=== PATIENT | male | born 1955 | race Caucasian/White ===

== ENCOUNTER → 2019-06-22 | Outpatient (CLI) | payer OTHER ==
[~2019-06-22] VITALS: Ht 167.6 cm; Wt 93.0 kg
[~2019-06-22] MED LIST: ALLOPURINOL 10100 M3 PO; ASA81BEC PO; FISH OIL 1,0001 EAC9 PO; FLEXERIL PO; LIPITOR40 MG PO; NORVASC5 MG PO; PROTONIX 20 MG20 M1 PO; TOPROL XL25 MG PO; TRAMADOL 50 MG50 MG PO; XANAX 0.5 MG0.5 M1 PO; ZANTAC 150MG T150 M1 PO
[2019-06-22 07:06] VITALS: BP 117/84
[2019-06-22 07:12] LABS: HEMATOCRIT 44.5 % (42.0-52.0); HEMOGLOBIN 14.9 gm/dL (14.0-18.0); MCH 31.4 pg (26.0-34.0); MCHC 33.5 g/dL (28.0-37.0); MCV 93.7 fL (80.0-100.0); RBC 4.75 mil/uL (4.50-6.00); RDW 13.4 % (10.5-14.5); WBC 6.1 thou/uL (4.0-11.0)
[2019-06-22 07:21] LABS: CREATININE 1.1 mg/dL (0.7-1.3); POTASSIUM 4.1 mmol/L (3.5-5.1)
--- NOTE | 2019-06-22 17:16 | EKG ---
[place] [address] [address] [employer] [facility] [place] [address] ELECTROCARDIOGRAM REPORT Name: SONYA BOYCE Room #: REG [facility]#: [id number] Admission: 06/22/19 Attend Phys: Christian Bazzi MD, Discharge: Date of : 57 Report #: [id number] THIS REPORT FOR: //name// [facility] Test Date: 2019-06-22 Test Time: 07:11:16 Pat Name: SONYA BOYCE Department: Room: Gender: M Freelance Interpreter/Translator: Duong MARTIN : 1955 Requested By: Christian Bazzi Order Number: [id number] MD: Tan Briones Measurements Intervals [place] Rate: 59 P: 0 WI: 224 QRS: -58 QRSD: 113 T: 4 QT: 417 QTc: 414 Interpretive Statements Sinus rhythm Prolonged WI interval Left anterior fascicular block Abnormal R-wave progression, early transition Compared to ECG 05/18/2001 11:13:20 First degree AV block now present Early R-wave progression now present Electronically Signed On 06-22-2019 17:16:18 CAMPUS SECURITY OFFICER by Tan Briones [email or web address] <ELECTRONICALLY SIGNED> By: Tan Briones MD, [facility] 06/22/19 1716 0 Tan Briones MD, [facility] /EPI
--- NOTE | 2019-06-23 17:59 | CATHLAB ---
[facility] [address] [place] [address] INVASIVE PROCEDURE REPORT Name: SONYA BOYCE [id number] Admission: 06/22/19 Attend Phys: Christian Bazzi, Discharge: Date of : 57 Report #: [id number] THIS REPORT FOR: //name// APPROVED REPORT Study performed: 06/22/2019 08:02:06 Patient Details Patient Status: Out-Patient Room #: The patient is a 64 year-old male Event Personnel Christian Bazzi Faucets Assembler, Beronica Baldwin Monitor, Bere Meléndez RT(R)() Gómezub, Tarun Strickland RTR Scrub, Irais Wilson RN RN, Nelson Ferris RTR Monitor Procedures Performed Art Access - R femoral artery* 77214 Initial Mod Sed Same Phys/QHP Gr5y 405728 Left Heart Cath w/or w/o Coronaries [id number] [facility] Aortogram Abdominal Peripheral Angio 551160 Hemostasis w/ Mynx Indication Chest pain Procedure Narrative The patient was brought electively to the Cardiac Catheterization Laboratory and was prepped and draped in a sterile manner. The Right Groin^ was infiltrated with 1% Lidocaine subcutaneous anesthesia. A PINNACLE 6FR Sheath #[id number] sheath was inserted into the RFA^. Coronary angiography was performed using coronary diagnostic catheters. The right coronary system was accessed and visualized with a JR4 catheter. The left coronary system was accessed and visualized with a JL 4 catheter. The left ventricle was accessed and visualized with a Pigtail catheter. Left ventriculogram was performed in NARVAEZ projection. An aortogram of the abdominal aorta was performed. Pre-demployment femoral angiogram was performed . Closure device was deployed with a 6 Fr Mynx. The patient tolerated the procedure well and there were no complications associated with the procedure. There was no hematoma. Intraoperative Conscious Sedation Sedation start time: 08:37 Case end Time: 09:03 Fentanyl 50 mcg Versed 1 mg [facility] [place] [address] INVASIVE PROCEDURE REPORT Name: SONYA BOYCE Andrea Room #: [facility]#: [id number] Admission: 06/22/19 Attend Phys: Christian Bazzi, Discharge: Date of : 57 Report #: [id number] Fluoro Time: 1.39 minutes Dose: DAP 4252.10 cGycm2 497 mGy Contrast Type and Amount: Omnipaque 100 ml Hemodynamics The aortic pressure is 113/74 mmHg with a mean of 92 mmHg. The left ventricular pressure is 107/2 mmHg with a mean of mmHg. The left ventricular end diastolic pressure is 11 mmHg. Conclusion #1 normal left ventricular size and systolic function EF 60% #2 abdominal aortogram intact no evidence of aneurysm formation single bilateral renal arteries widely patent #3 normal coronary anatomy no occlusive disease noted there is a large dominant right coronary artery system Recommendations and plan continue aggressive risk factor modification. No indication for coronary intervention. Discharge protocol to follow CV holding area. <ELECTRONICALLY SIGNED> By: Christian Bazzi MD, FACC 06/23/191758 58 58 Christian Bazzi MD, FACC /INF
== END | disposition home or self-care (01) ==
LOC: CATH 06-19 13:30
PROVIDERS: Internal Medicine Cardiovascular Disease
DX: R07.9 Chest pain, unspecified (principal); I10 Essential (primary) hypertension; J44.9 Chronic obstructive pulmonary disease, unspecified; M10.9 Gout, unspecified; G43.909 Migraine, unspecified, not intractable, without status migrainosus; Z98.890 Other specified postprocedural states; Z79.899 Other long term (current) drug therapy; Z86.73 Personal history of transient ischemic attack (TIA), and cerebral infarction without residual deficits; Z79.82 Long term (current) use of aspirin